=== PATIENT | male | born 1950 ===

== ENCOUNTER → 2017-04-03 | Outpatient (REF) ==
[2017-04-03 19:04] LABS: PSA-TOTAL 0.63 ng/mL (0-4); THYROID STIMULATING HORMONE 4.01 uIU/mL (0.465-4.680)
== END ==
LOC: ZLAB.WCH 18:04
PROVIDERS: Nurse Practitioner Family
DX: Z01.89 Encounter for other specified special examinations (principal)
CPT/HCPCS: G0103